=== PATIENT | female | born 1945 | race Asian ===

== ENCOUNTER 2022-10-14 15:09 | Emergency (ER) | payer MEDICARE ==
[~2022-10-14] VITALS: Ht 165.1 cm; Wt 65.3 kg
[2022-10-14] MEDS ORDERED: LIDOCAINE HCL 1% 20 ML VIAL ONE (15:27)
[2022-10-14] MEDS ORDERED: LIDOCAINE HCL 1% 20 ML VIAL TP ONE (15:30)
[2022-10-14] MEDS ORDERED: INSU300I3 SQ (15:33)
[2022-10-14] MEDS ORDERED: ICOS1CAP PO (15:33)
[2022-10-14] MEDS ORDERED: ROSU10TA2 PO (15:33)
[2022-10-14] MEDS ORDERED: TURM1CAP2 PO (15:33)
[2022-10-14] MEDS ORDERED: DULA1.5P SQ (15:33)
[2022-10-14] MEDS ORDERED: SITA1TAB6 PO (15:33)
[2022-10-14] MEDS ORDERED: HYDR200T4 PO (15:33)
[2022-10-14] MEDS ORDERED: HYDROCHLOR (15:33)
[2022-10-14 16:00] VITALS: BP 133/74; O2SAT 96
== END 2022-10-14 16:00 | disposition home or self-care (01) ==
LOC: ER 15:09
DX: L02.512 Cutaneous abscess of left hand (principal); E11.9 Type 2 diabetes mellitus without complications; E78.5 Hyperlipidemia, unspecified; Z79.4 Long term (current) use of insulin; Z79.899 Other long term (current) drug therapy
CPT/HCPCS: 26010; 76536; 99284; J3490; A4663